=== PATIENT | male | born 1970 | race Caucasian/White ===

== ENCOUNTER 2021-02-10 16:41 | Emergency (ER) | payer OTHER ==
[~2021-02-10] VITALS: Ht 177.8 cm; Wt 70.3 kg
[2021-02-10 18:05] VITALS: BP 117/89
== END 2021-02-10 18:06 | disposition home or self-care (01) ==
LOC: M.ERS 16:41
DX: S51.812A Laceration without foreign body of left forearm, initial encounter (principal); W26.8XXA Contact with other sharp object(s), not elsewhere classified, initial encounter; Y93.89 Activity, other specified; Y92.89 Other specified places as the place of occurrence of the external cause; Y99.8 Other external cause status